=== PATIENT | female | born 1950 | race Caucasian/White ===

== ENCOUNTER → 2017-10-16 | Outpatient (CLI) | payer MEDICARE, OTHER | END | disposition home or self-care (01) | LOC: RAD 06:34 | PROVIDERS: ATTEND Internal Medicine Cardiovascular Disease | DX: I10 Essential (primary) hypertension (principal); R06.02 Shortness of breath; E78.5 Hyperlipidemia, unspecified | CPT/HCPCS: 78452; 93017; 93306; A9502 ==

== ENCOUNTER 2018-07-08 14:59 | Inpatient (IN) | payer MEDICARE, OTHER ==
[~2018-07-08] VITALS: Ht 162.6 cm; Wt 73.9 kg
[~2018-07-08 14:59] MED LIST: ALBU8.5H8 INH; ALPR-475 PO; APIX5TAB PO; ASPI-515 PO; CETI-158 PO; CHOL5000 PO; DIGO125T PO; DILT-8 PO; FLUT100D INH; HYDR200T72 PO; LEFL20TA16 PO; LISI1TAB5 PO; MONT10TA9 PO; MULT-516 PO; OMEP40CA6 PO; SIMV20TA3 PO; [UNRECOGNIZED DRUG - OTHER] VG; fish oil PO
[2018-07-08 15:27] LABS: MEAN CORPUSCULAR HEMOGLOBIN 29.3 pg (27.0-34.8); MEAN CORPUSCULAR HGB CONC 33.8 g/dL (32.4-35.8); MEAN CORPUSCULAR VOLUME 86.5 fL (80-100); MEAN PLATELET VOLUME 8.4 fL (7.4-10.4); PLATELET COUNT 446 x10^3/uL (130-400); RED BLOOD COUNT 4.64 x10^6/uL (3.82-5.3); RED CELL DISTRIBUTION WIDTH 15.9 % (9.6-15.2)
[2018-07-08 15:34] LABS: ALBUMIN 2.1 g/dL (3.4-5.0); ANION GAP 13 mmol/L (5-15); CALCIUM 8.8 mg/dL (8.5-10.1); CHLORIDE 97 mmol/L (98-107)
[2018-07-08 15:41] LABS: ALANINE AMINOTRANSFERASE 16 U/L (12-78); ALKALINE PHOSPHATASE 121 U/L (45-117); BILIRUBIN,TOTAL 0.6 mg/dL (0.2-1.0); CREATININE 0.96 mg/dL (0.55-1.02); TOTAL PROTEIN 6.9 g/dL (6.4-8.2)
[2018-07-08] MEDS ORDERED: ONDANSETRON 2MG/ML, 2ML IVPush PRN ×2 (16:00→18:00)
[2018-07-08] MEDS ORDERED: SODIUM CHLORIDE 0.9% 1,000ML IVBOLUS ONE (16:00)
[2018-07-08] MEDS ORDERED: POTASSIUM CHLORIDE 40 MEQ in SODIUM CHLORIDE 0.9% 500 ML IV ONE (16:00)
[2018-07-08] MEDS ORDERED: ONDANSETRON 2MG/ML, 2ML ONE (16:17)
[2018-07-08 16:22] LABS: MICROSCOPIC INDICATED
[2018-07-08 16:23] LABS: MD YES
[2018-07-08 16:30] LABS: BAND#(MANUAL) 0.38 x10^3/uL; BANDS%(MANUAL) 2 % (0-7); BASOS#(MANUAL) 0.19 x10^3/uL (0-0.1); BASOS% (MANUAL) 1 % (0-1); EOS#(MANUAL) 0.76 x10^3/uL (0.0-0.4); EOS% (MANUAL) 4 % (1-7); LYMPH#(MANUAL) 2.48 x10^3/uL (1-3.4); LYMPHS% (MANUAL) 13 % (22-44); MONOS#(MANUAL) 1.15 x10^3/uL (0.3-2.7); MONOS% (MANUAL) 6 % (2-9); SEG#(MANUAL) 14.13 x10^3/uL (1.8-6.8); SEGS% (MANUAL) 74 % (42-75)
[2018-07-08 16:31] LABS: <PLATELET ESTIMATE> INCREASED; <PLT MORPHOLOGY> NORMAL PLT MORPH; <RBC MORPHOLOGY> NORMAL; TOXIC GRAN 1+
[2018-07-08 16:36] LABS: CULTURE INDICATED? NO
[2018-07-08] MEDS ORDERED: BISACODYL 10 MG SUPP PR PRN (18:00)
[2018-07-08] MEDS ORDERED: POLYETHYLENE GLYCOL 17 GM PACKET PO PRN (18:00)
[2018-07-08] MEDS: NS + 20MEQ KCL 1,000 ML IV SCH (18:00)
[2018-07-08 18:41] VITALS: BP 109/71
[2018-07-08] MEDS: APIXABAN 5 MG TABLET PO SCH (19:55)
[2018-07-08] MEDS: SIMVASTATIN 20 MG TABLET PO SCH (19:55)
[2018-07-08] MEDS: FLUTICASONE PROPIONATE INH SCH (19:55)
[2018-07-08] MEDS: morphine SULFATE 10 MG/ML, 1ML IVPush PRN (20:01)
[2018-07-08 20:58] VITALS: BP 96/63
[2018-07-09] MEDS: NS + 20MEQ KCL 1,000 ML IV SCH ×2 (00:21→07:29)
[2018-07-09] MEDS: morphine SULFATE 10 MG/ML, 1ML IVPush PRN ×3 (01:05→20:24)
[2018-07-09 02:59] VITALS: BP 95/57
[2018-07-09 05:51] LABS: BASOPHILS # (AUTO) 0.07 x10^3/uL (0-0.1); BASOPHILS % (AUTO) 1 % (0-1); EOSINOPHILS # (AUTO) 0.75 x10^3/uL (0-0.4); EOSINOPHILS % (AUTO) 6 % (1-7); LYMPHOCYTES # (AUTO) 1.43 x10^3/uL (1-3.4); LYMPHOCYTES % (AUTO) 11 % (22-44); MD NO; MEAN CORPUSCULAR HEMOGLOBIN 28.9 pg (27.0-34.8); MEAN CORPUSCULAR VOLUME 87.7 fL (80-100); MEAN PLATELET VOLUME 8.1 fL (7.4-10.4); MONOCYTES # (AUTO) 0.96 x10^3/uL (0.2-0.8); MONOCYTES % (AUTO) 7 % (2-9); NEUTROPHILS # (AUTO) 10.15 x10^3/uL (1.8-6.8); NEUTROPHILS % (AUTO) 76 % (42-75); PLATELET COUNT 350 x10^3/uL (130-400); RED BLOOD COUNT 3.92 x10^6/uL (3.82-5.3)
[2018-07-09 06:00] LABS: ALBUMIN 1.7 g/dL (3.4-5.0); ANION GAP 8 mmol/L (5-15); CALCIUM 7.9 mg/dL (8.5-10.1); CHLORIDE 108 mmol/L (98-107)
[2018-07-09 06:06] LABS: ALANINE AMINOTRANSFERASE 14 U/L (12-78); ALKALINE PHOSPHATASE 94 U/L (45-117); BILIRUBIN,TOTAL 0.4 mg/dL (0.2-1.0); CHOL/HDL RATIO 2.8; CHOLESTEROL, TOTAL 112 mg/dL (140-239); CREATININE 0.58 mg/dL (0.55-1.02); HDL CHOL % 36 % (28-40); HDL CHOLESTEROL (DIRECT) 40 mg/dL (40-60); LDL CHOLESTEROL,CALCULATED 44 mg/dL (54-169); LDL/HDL RATIO 1.1 (0.5-3.0); TOTAL PROTEIN 5.5 g/dL (6.4-8.2); TRIGLYCERIDES 140 mg/dL (50-200); VLDL CHOLESTEROL 28 mg/dL (0-25)
[2018-07-09 07:02] VITALS: BP 98/54
[2018-07-09] MEDS: HYDROCHLOROTHIAZIDE 12.5 MG CAPSULE PO SCH (08:37)
[2018-07-09] MEDS: CHOLECALCIFEROL 5,000u TAB PO SCH (08:56)
[2018-07-09] MEDS: ASPIRIN 81 MG TABLET EC PO SCH (08:56)
[2018-07-09] MEDS: APIXABAN 5 MG TABLET PO SCH ×2 (08:56→20:24)
[2018-07-09] MEDS: DILTIAZEM 120 MG CAP.ER.24H PO SCH (08:56)
[2018-07-09] MEDS: HYDROXYCHLOROQUINE 200 MG TABLET PO SCH (08:57)
[2018-07-09] MEDS ORDERED: LISINOPRIL 20 MG TABLET PO SCH (09:00)
[2018-07-09] MEDS: FLUTICASONE PROPIONATE INH SCH ×2 (09:00→20:25)
[2018-07-09] MEDS: POTASSIUM CHLORIDE 40 MEQ in LACTATED RINGERS 1,000 ML IV SCH ×2 (09:44→17:10)
[2018-07-09] MEDS: ACETAMINOPHEN 325 MG TABLET PO PRN (09:55)
[2018-07-09 12:54] VITALS: BP 108/65
[2018-07-09 19:24] VITALS: BP 125/76
[2018-07-09] MEDS: SIMVASTATIN 20 MG TABLET PO SCH (20:24)
[2018-07-10] MEDS: POTASSIUM CHLORIDE 40 MEQ in LACTATED RINGERS 1,000 ML IV SCH ×2 (00:02→06:32)
[2018-07-10 00:30] VITALS: BP 105/64
[2018-07-10] MEDS: ACETAMINOPHEN 325 MG TABLET PO PRN (00:50)
[2018-07-10] MEDS: morphine SULFATE 10 MG/ML, 1ML IVPush PRN ×2 (04:30→08:27)
[2018-07-10 07:30] VITALS: BP 123/75
[2018-07-10] MEDS: HYDROCHLOROTHIAZIDE 12.5 MG CAPSULE PO SCH (08:26)
[2018-07-10] MEDS: CHOLECALCIFEROL 5,000u TAB PO SCH (08:26)
[2018-07-10] MEDS: DILTIAZEM 120 MG CAP.ER.24H PO SCH (08:26)
[2018-07-10] MEDS: HYDROXYCHLOROQUINE 200 MG TABLET PO SCH (08:27)
[2018-07-10] MEDS: ASPIRIN 81 MG TABLET EC PO SCH (08:27)
[2018-07-10] MEDS: APIXABAN 5 MG TABLET PO SCH (08:27)
[2018-07-10 08:28] LABS: BASOPHILS # (AUTO) 0.06 x10^3/uL (0-0.1); BASOPHILS % (AUTO) 0 % (0-1); EOSINOPHILS # (AUTO) 0.71 x10^3/uL (0-0.4); EOSINOPHILS % (AUTO) 5 % (1-7); LYMPHOCYTES # (AUTO) 1.18 x10^3/uL (1-3.4); LYMPHOCYTES % (AUTO) 9 % (22-44); MD NO; MEAN CORPUSCULAR HGB CONC 33.1 g/dL (32.4-35.8); MEAN CORPUSCULAR VOLUME 87.7 fL (80-100); MONOCYTES # (AUTO) 0.89 x10^3/uL (0.2-0.8); MONOCYTES % (AUTO) 6 % (2-9); NEUTROPHILS # (AUTO) 11.05 x10^3/uL (1.8-6.8); NEUTROPHILS % (AUTO) 80 % (42-75); PLATELET COUNT 368 x10^3/uL (130-400); RED BLOOD COUNT 3.88 x10^6/uL (3.82-5.3); RED CELL DISTRIBUTION WIDTH 15.9 % (9.6-15.2)
[2018-07-10 08:40] LABS: ALBUMIN 1.7 g/dL (3.4-5.0); ANION GAP 7 mmol/L (5-15); CALCIUM 8.2 mg/dL (8.5-10.1); CHLORIDE 109 mmol/L (98-107)
[2018-07-10 08:43] LABS: ALANINE AMINOTRANSFERASE 12 U/L (12-78); ALKALINE PHOSPHATASE 115 U/L (45-117); BILIRUBIN,TOTAL 0.5 mg/dL (0.2-1.0); CREATININE 0.48 mg/dL (0.55-1.02); TOTAL PROTEIN 5.7 g/dL (6.4-8.2)
[2018-07-10] MEDS: FLUTICASONE PROPIONATE INH SCH (08:51)
[2018-07-10] MEDS ORDERED: LEFLUNOMIDE 20 MG TABLET PO SCH (09:00)
[2018-07-10] MEDS ORDERED: LISINOPRIL 20 MG TABLET PO SCH (09:00)
[2018-07-10 12:50] VITALS: BP 135/88
== END 2018-07-10 18:00 | disposition home or self-care (01) | DRG 871 ==
LOC: ED 15:12 → EDIP 17:32 → 4EST 18:34
PROVIDERS: ADMIT Hospitalist; ATTEND Hospitalist
DX: A41.9 Sepsis, unspecified organism (principal); E43 Unspecified severe protein-calorie malnutrition; K85.90 Acute pancreatitis without necrosis or infection, unspecified; D68.69 Other thrombophilia; E87.1 Hypo-osmolality and hyponatremia; I48.2 Chronic atrial fibrillation; I10 Essential (primary) hypertension; E87.6 Hypokalemia; K21.9 Gastro-esophageal reflux disease without esophagitis; F41.9 Anxiety disorder, unspecified; E78.5 Hyperlipidemia, unspecified; J45.909 Unspecified asthma, uncomplicated; K44.9 Diaphragmatic hernia without obstruction or gangrene; M06.9 Rheumatoid arthritis, unspecified; Z90.710 Acquired absence of both cervix and uterus; Z96.653 Presence of artificial knee joint, bilateral; Z90.49 Acquired absence of other specified parts of digestive tract; Z98.51 Tubal ligation status; Z68.28 Body mass index [BMI] 28.0-28.9, adult
CPT/HCPCS: 36415; 74022; 76700; 80053; 80061; 80074; 80162; 81001; 83690; 83735; 85025; 96361; 96374; G0378; J2405; J3480; J2270; J7030; J7040; J7120

== ENCOUNTER 2019-04-27 09:03 | Outpatient (CLI) | payer MEDICARE, OTHER ==
[~2019-04-27 09:03] MED LIST changes: -ALPR-475 PO; +ALPR0.5T7 PO; +LISI1TAB19 PO; -LISI1TAB5 PO
== END 2019-04-27 23:59 | disposition home or self-care (01) ==
LOC: CFH 09:03
PROVIDERS: ATTEND Internal Medicine Cardiovascular Disease
DX: I08.8 Other rheumatic multiple valve diseases (principal); I10 Essential (primary) hypertension; E78.5 Hyperlipidemia, unspecified
CPT/HCPCS: 93306